=== PATIENT | female | born 1970 | race Caucasian/White ===

== ENCOUNTER 2021-05-26 09:46 | Outpatient (CLI) | payer OTHER ==
--- NOTE | 2021-05-26 13:14 | XRAY Report ---
PROCEDURE: Ribs w/PA Chest RT INDICATIONS: CONTUSION OF R FRONT WALL OF THORAX TECHNIQUE: 2 views of the right ribs were acquired, along with a single view chest. COMPARISON: None FINDINGS: Surgical changes and devices: None. Bones and chest wall: No fractures or dislocations. No suspicious bony lesions. Overlying soft tis sues appear unremarkable. Lungs and pleura: No pleural effusions or pneumothorax. Lungs appear clear. Mediastinum: Mediastinal contours appear normal. Heart size is normal. IMPRESSION: No displaced rib fracture. No acute cardiopulmonary disease process. Reviewed by: Nano Jones MD, PhD on 05/26/2021 1:13 PM PDT Approved by: Nano Jones MD, PhD on 05/26/2021 1:13 PM PDT Station ID: [id number]
== END 2021-05-26 23:59 | disposition home or self-care (01) ==
LOC: DI.N 09:46
PROVIDERS: ATTEND Emergency Medicine
DX: S20.211A Contusion of right front wall of thorax, initial encounter (principal)

== ENCOUNTER 2021-10-10 13:00 | Outpatient (CLI) | payer OTHER | END 2021-10-10 23:59 | disposition home or self-care (01) | LOC: LAB 13:00 | PROVIDERS: ATTEND Physician Assistant | DX: R50.9 Fever, unspecified (principal); Z20.822 Contact with and (suspected) exposure to COVID-19 ==

== ENCOUNTER 2021-10-16 11:57 | Outpatient (CLI) | payer OTHER ==
[2021-10-16 13:41] LABS: BASOPHILS # (AUTO) 0.1 10^3/uL (0.0-0.1); BASOPHILS % (AUTO) 0.5 %; EOSINOPHILS # (AUTO) 0.2 10^3/uL (0.0-0.7); EOSINOPHILS % (AUTO) 1.3 %; HCT - HEMATOCRIT 41.8 % (37.0-47.0); HGB - HEMOGLOBIN 13.6 g/dL (12.0-16.0); LYMPHOCYTES # (AUTO) 1.9 10^3/uL (1.5-3.5); LYMPHOCYTES % (AUTO) 14.5 %; MEAN CORPUSCULAR HEMOGLOBIN 33.3 pg (27.0-31.0); MEAN CORPUSCULAR HGB CONC 32.5 g/dL (32.0-36.0); MEAN CORPUSCULAR VOLUME 102.5 fL (81.0-99.0); MEAN PLATELET VOLUME 10.8 fL (7.9-10.8); MONOCYTES # (AUTO) 0.9 10^3/uL (0.0-1.0); MONOCYTES % (AUTO) 6.5 %; NEUTROPHILS # (AUTO) 10.3 10^3/uL (1.5-6.6); NEUTROPHILS % (AUTO) 76.8 %; PLT - PLATELET COUNT 285 10^3/uL (130-450); RED BLOOD COUNT 4.08 10^6/uL (4.20-5.40); WHITE BLOOD COUNT 13.4 x10^3/uL (4.8-10.8)
[2021-10-16 13:56] LABS: ALBUMIN/GLOBULIN RATIO 1.2 (1.0-2.2); BILIRUBIN,TOTAL 0.4 mg/dL (0.2-1.0); CALCIUM 9.3 mg/dL (8.5-10.3); CREATININE 0.6 mg/dL (0.4-1.0); POTASSIUM 4.3 mmol/L (3.5-5.0); TOTAL PROTEIN 7.4 g/dL (6.7-8.2)
== END 2021-10-16 11:58 | disposition home or self-care (01) ==
LOC: LAB.N 11:57
PROVIDERS: ATTEND Family Medicine
DX: R10.13 Epigastric pain (principal)
CPT/HCPCS: 36415; 80053; 83690; 85025

== ENCOUNTER 2022-10-18 08:00 | Outpatient (CLI) | payer OTHER ==
--- NOTE | 2022-10-18 14:27 | XRAY Report ---
PROCEDURE: Lumbar Spine 2 View INDICATIONS: LOW BACK PX TECHNIQUE: 3 views of the lumbar spine were acquired. COMPARISON: None. FINDINGS: Bones: 5 [id number] vertebrae are present. There is grade 1-2 L4-L5 isthmic anterolisthesis. N o vertebral body compression fractures. No suspicious bony lesions. Severe L4-L5 degenerative disc c hanges. Mild L5-S1 degenerative disc disease. Mild L4, L4-L5 and L5-S1 facet arthropathy. Soft tissues: Overlying bowel gas pattern is normal. No suspicious soft tissue calcifications. IMPRESSION: 1. Multilevel degenerative disc disease. 2. Multilevel facet arthropathy. 3. No fracture. No acute osseous lesion. If there is continued clinical concern for pathology, then M RI should be considered for further evaluation. 4. Grade 1-2 L4-L5 isthmic anterolisthesis. Reviewed by: Nano Jones MD, PhD on 10/18/2022 2:26 PM PST Approved by: Nano Jones MD, PhD on 10/18/2022 2:26 PM PST Station ID: [id number]
== END 2022-10-18 23:59 | disposition home or self-care (01) ==
LOC: DI.N 08:00
PROVIDERS: ATTEND Nurse Practitioner
DX: M51.36 Other intervertebral disc degeneration, lumbar region (principal); M51.37 Other intervertebral disc degeneration, lumbosacral region; M47.816 Spondylosis without myelopathy or radiculopathy, lumbar region; M47.817 Spondylosis without myelopathy or radiculopathy, lumbosacral region; M43.16 Spondylolisthesis, lumbar region

== ENCOUNTER 2023-01-30 10:48 | Outpatient (CLI) | payer OTHER ==
--- NOTE | 2023-01-30 12:25 | XRAY Report ---
PROCEDURE: Knee 2 View RT INDICATIONS: KNEE PAIN,RIGHT TECHNIQUE: 2 views of the right knee were acquired. COMPARISON: None. FINDINGS: Bones: No acute fractures or dislocations. No suspicious bony lesions. Soft tissues: No joint effusion. No suspicious soft tissue calcifications. IMPRESSION: No acute osseous abnormality. If symptoms persist or there is continued clinical concern , further evaluation with MRI may be helpful. Reviewed by: Isidoro Sewell MD on 01/30/2023 12:23 PM PDT Approved by: Isidoro Sewell MD on 01/30/2023 12:23 PM PDT Station ID: [id number]
== END 2023-01-30 10:49 | disposition home or self-care (01) ==
LOC: DI 10:48
PROVIDERS: ATTEND Family Medicine
DX: M25.561 Pain in right knee (principal)

== ENCOUNTER 2023-10-18 14:25 | Outpatient (CLI) | payer OTHER | END 2023-10-18 14:26 | disposition short-term general hospital (02) | LOC: EMS 14:25 | DX: M54.2 Cervicalgia (principal); M54.50 Low back pain, unspecified; R51.9 Headache, unspecified; V43.52XA Car driver injured in collision with other type car in traffic accident, initial encounter; W22.11XA Striking against or struck by driver side automobile airbag, initial encounter; Y92.414 Local residential or business street as the place of occurrence of the external cause; Z98.1 Arthrodesis status | CPT/HCPCS: A0425; A0429 ==